=== PATIENT | female | born 1940 | race African-American/Black ===

== ENCOUNTER 2017-03-10 08:27 | Emergency (ER) | payer MEDICARE ==
[2017-03-10 09:26] LABS: Urine Drugs of Abuse Note Disclamer
[2017-03-10 09:47] LABS: Bilirubin,Urine NEG (Negative); Blood,Urine NEG (Negative); Ketones,Urine NEG (Negative); Leukocyte Esterase,Urine TR (Negative); Mucus,Urine FEW /HPF; Nitrite,Urine NEG (Negative)
[2017-03-10 09:54] LABS: Basophils % (Auto) 0.4 % (0.0-1.8); Eosinophils % (Auto) 2.4 % (0.0-4.3); Hematocrit 34.9 % (30.3-42.9); Hemoglobin 11.1 gm/dl (10.1-14.3); Mean Corpuscular HGB Conc 32 % (30-34); Mean Corpuscular Hemoglobin 29 pg (28-32); Mean Corpuscular Volume 92 fl (79-97); Red Cell Distribution Width 15.1 % (13.2-15.2); White Blood Count 5.4 K/mm3 (4.5-11.0)
[2017-03-10 09:57] LABS: Anion Gap 17 mmol/L; BUN/Creatinine Ratio 31; Blood Urea Nitrogen 25 mg/dL (7-17); Calcium 9.3 mg/dL (8.4-10.2); Carbon Dioxide 26 mmol/L (22-30); Chloride 102.6 mmol/L (98-107); Glucose 239 mg/dL (65-100); Potassium 3.9 mmol/L (3.6-5.0); Sodium 142 mmol/L (137-145)
[2017-03-10 10:04] LABS: Platelet Count 83 K/mm3 (140-440)
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
--- NOTE | 2017-03-10 16:26 | Cat Scan Report ---
FINAL REPORT EXAM: CT HEAD/BRAIN WO CON HISTORY: dementia ? head trauma TECHNIQUE: CT head without contrast PRIORS: None. FINDINGS: No acute intra-axial or extra-axial hemorrhage is identified. There is no evidence of midline shift or mass effect. There is generalized prominence of ventricles and sulci consistent with mild generalized atrophy. Holt-white matter differentiation is intact. No acute parenchymal abnormalities seen. There are patchy and confluent hypodensities within the supratentorial white matter. Increased density is noted within right mastoid air cells which may be acute or chronic. IMPRESSION: Chronic small vessel white matter ischemic change Mild generalized atrophy And right mastoiditis which could be acute or chronic.
[2017-03-10] MEDS ORDERED: GEODON IM STA (18:33)
[2017-03-10] MEDS ORDERED: WATER FOR INJ (PF) 10 ML ONE (18:59)
[2017-03-10] MEDS ORDERED: ATIVAN IM PRN (19:21)
[2017-03-10] MEDS ORDERED: TYLENOL PO PRN (19:21)
[2017-03-10] MEDS ORDERED: HALDOL IM PRN (19:21)
[2017-03-10] MEDS ORDERED: LOSARTAN POTASSIUM 25 MG PO SCH (19:45)
[2017-03-10] MEDS ORDERED: NON-FORMULARY (Sertraline 100 MG) PO SCH (19:45)
[2017-03-10] MEDS ORDERED: ESOMEPRAZOLE MAGNESIUM 20 MG PO SCH (19:45)
[2017-03-10] MEDS ORDERED: LEVOTHYROXINE 50 MCG PO SCH (19:45)
[2017-03-10] MEDS ORDERED: COREG PO SCH ×2 (22:00)
[2017-03-10] MEDS ORDERED: NON-FORMULARY (Carvedilol 6.25 MG) PO SCH (22:00)
[2017-03-10] MEDS ORDERED: REMERON PO SCH (22:00)
[2017-03-10] MEDS ORDERED: ROSUVASTATIN CALCIUM 5 MG PO SCH (22:00)
[2017-03-10] MEDS ORDERED: NON-FORMULARY (Mirtazapine 15 MG) PO SCH (22:00)
[2017-03-10] MEDS ORDERED: METFORMIN HCL 1000 MG PO SCH (22:00)
[2017-03-10 23:19] VITALS: BP 143/85
[2017-03-11] MEDS ORDERED: SYNTHROID PO SCH (06:00)
[2017-03-11] MEDS ORDERED: GLUCOPHAGE PO SCH (08:00)
[2017-03-11] MEDS ORDERED: COZAAR PO SCH ×2 (10:00)
[2017-03-11] MEDS ORDERED: ZOLOFT PO SCH (10:00)
[2017-03-11] MEDS ORDERED: PROTONIX PO SCH ×2 (10:00)
== END 2017-03-11 02:33 | disposition home or self-care (01) ==
LOC: ED 08:27
DX: R41.0 Disorientation, unspecified (principal); R21 Rash and other nonspecific skin eruption; I50.9 Heart failure, unspecified; E11.9 Type 2 diabetes mellitus without complications
CPT/HCPCS: 36415; 70450; 80048; 80307; 81001; 85025; 96372; 99285; A9270; G0480; J3486; 80320